=== PATIENT | male | born 1940 | race African-American/Black ===

== ENCOUNTER 2019-03-09 15:56 | Emergency (ER) | payer OTHER ==
--- NOTE | 2019-03-09 17:18 | PDOC ---
History of Present Illness - General Chief Complaint: Pain Stated Complaint: PAIN Time Seen by Provider: 03/09/19 16:50 History Source: Patient, Spouse Exam Limitations: No Limitations - History of Present Illness Initial Comments: 03/09/19 17:12 78 yo M PMH HTN, NIDDM, HLD, CAD s/p coronary stent 2/2 stress test result, PVD with previous cold L leg s/p stent, osteomyelitis of L big toe on vancomycin through PICC line, gout, presenting with chest tightness. States that he began to have pain in his L chest when taking a deep breath at around 1100, which has remained unchanged since then. Specifically denies SOB, N/V, abdominal pain, ELLIS, fevers/chills, constipation/ diarrhea. Past History - Past Medical History Allergies/Adverse Reactions: Allergies Allergy/AdvReac Type Severity Reaction Status Date / Time No Known Allergies Allergy Verified 03/09/19 16:21 Home Medications: Ambulatory Orders Allopurinol [Zyloprim -] 100 mg PO DAILY 03/09/19 Ascorbate Calcium [Vitamin C] 500 mg PO BID 03/09/19 Atorvastatin Calcium [Lipitor] 10 mg PO HS 03/09/19 Clopidogrel Bisulfate [Plavix] 75 mg PO DAILY 03/09/19 Esomeprazole Magnesium [Nexium 24Hr] 20 mg PO HS 03/09/19 Glyxambi 25 mg-5 mg Tablet 1 tab PO DAILY 03/09/19 Losartan Potassium 100 mg PO DAILY 03/09/19 Metformin HCl [Glucophage] 500 mg PO BID 03/09/19 Metoprolol Tartrate 25 mg PO BID 03/09/19 Vancomycin 1 gm Premix - 1 gm IV BID 03/09/19 COPD: No Diabetes: Yes HTN: Yes Other medical history: toe infection with iv abx and picc line - Surgical History Cardiac Surgery: Yes (stents) - Psycho Social/Smoking Cessation Hx Smoking History: Never smoked Review of Systems - Review of Systems Constitutional: No: Chills, Fever HEENTM: No: Blurred Vision, Hearing Loss, Difficulty Swallowing Respiratory: No: Cough, Shortness of Breath Cardiac (ROS): Yes: Chest Tightness. No: Chest Pain, Edema, Irregular Heart Rate ABD/GI: No: Difficulty Swallowing : No: Burning, Dysuria, Discharge, Frequency, Flank Pain Musculoskeletal: No: Back Pain, Muscle Pain Integumentary: No: Bruising Neurological: No: Headache, Numbness, Tingling *Physical Exam - Vital Signs Last Vital Signs Temp Pulse Resp BP Pulse Ox 97.6 F 74 18 150/64 99 03/09/19 16:18 03/09/19 16:18 03/09/19 16:18 03/09/19 16:18 03/09/19 16:18 - Physical Exam Comments: 03/09/19 17:22 Gen: well-developed, well-nourished, NAD HEENT: atraumatic, normocephalic Neck: trachea midline, supple CV: regular rate, regular rhythm Pulm: CTA b/l, no wheezing Abd: soft, non-distended, non-tender Extr: no edema, L big toenail ulceration MSK: full ROM, PICC line in place in L forearm Skin: warm, dry Neuro: CN II-XII intact, FTN intact, AAOX4 ED Treatment Course - LABORATORY CBC & Chemistry Diagram: 03/09/19 17:58 03/09/19 17:58 - RADIOLOGY Radiology Studies Ordered: Category Date Time Status CHEST PA & LAT [RAD] Stat Radiology 03/09/19 17:08 Ordered Medical Decision Making - Medical Decision Making 03/09/19 17:19 78 yo M with significant comorbidities, presenting with chest tightness. - EKG at sinus, 72 bpm, possible old anterior infarct - will get full cardiac workup - CBC, CMP, CXR, trop - will also get PT/INR and PTT considering stent history, on Plavix - will CTM - Wells score 1.5, PE unlikely 03/09/19 19:12 Patient's symptoms resolving. CXR and labs unremarkable. 03/09/19 19:30 Patient states that his symptoms have resolved, no longer feeling chest tightness. 03/09/19 19:45 Explained to patient the importance of staying to get a second troponin level checked. Patient is adamant that he would like to go home. The risks, including worsening chest pain, worsening shortness of breath, and potentially were explained to him, and still wants to leave. He is able to make this decision. Discharge - Discharge Information Problems reviewed: Yes Clinical Impression/Diagnosis: Chest tightness Condition: Guarded Disposition: AGAINST MEDICAL ADVICE - Admission No - Follow up/Referral Referrals: Jori Antony [Primary Care Provider] - - Patient Discharge Instructions Patient Printed Discharge Instructions: DI for Atypical Chest Pain Additional Instructions: You were seen after you developed chest tightness and some pain with deep breaths. Your EKG did not show any acute changes, and your labs were unconcerning. Your chest X ray also did not show any acute abnormalities. Your symptoms resolved while you were in the emergency department. Please follow up with your primary care doctor and your vascular surgeon. Return to the ED right away if you develop any chest pain or shortness of breath. - Post Discharge Activity
[2019-03-09 18:03] LABS: BASO % 1.4 % (0-2.0); EOS % 1.5 % (0-4.5); HEMATOCRIT 37.7 % (35.4-49); HEMOGLOBIN 12.3 GM/dL (11.7-16.9); LYMPH % 16.6 % (8-40); MCH 28.8 pg (25.7-33.7); MCHC 32.6 g/dl (32.0-35.9); MEAN CELL VOLUME 88.5 fl (80-96); MEAN PLT VOLUME 8.3 fl (7.5-11.1); MONO % 6.4 % (3.8-10.2); NEUT % 74.1 % (42.8-82.8); PLATELET COUNT 275 K/MM3 (134-434); RBC 4.26 M/mm3 (4.00-5.60); RDW 15.5 % (11.9-15.9); WHITE BLOOD COUNT 6.3 K/mm3 (4.0-10.0)
[2019-03-09 18:21] LABS: INR 1.08 (0.83-1.09); PROTHROMBIN TIME (PATIENT) 12.8 SEC (9.7-13.0)
[2019-03-09] MEDS ORDERED: ASPIRIN 81 MG CHEWABLE TABLETS PO ONE (19:00)
[2019-03-09 19:06] LABS: ALBUMIN 3.8 g/dl (3.4-5.0); ALK PHOS 93 U/L (45-117); ANION GAP 10 MMOL/L (8-16); BILIRUBIN,TOTAL 0.7 mg/dL (0.2-1); BLOOD UREA NITROGEN 21.6 mg/dL (7-18); CALCIUM 9.1 mg/dL (8.5-10.1); CHLORIDE 106 mmol/L (98-107); CO2 24 mmol/L (21-32); GLUCOSE,RANDOM 95 mg/dL (74-106); POTASSIUM 4.7 mmol/L (3.5-5.1); SGOT/AST 30 U/L (15-37); SGPT/ALT 18 U/L (13-61); SODIUM 141 mmol/L (136-145)
[2019-03-09] MEDS ORDERED: ASPIRIN 81 MG CHEWABLE TABLETS ONE (19:23)
--- NOTE | 2019-03-09 19:46 | PDOC ---
Documentation entered by Roxanne Salgado SCRIBE, acting as scribe for Katelin Riggs MD. Katelin Riggs MD: This documentation has been prepared by the Naomi beaver Nirvannie, SCRIBE, under my direction and personally reviewed by me in its entirety. I confirm that the documentation accurately reflects all work, treatment, procedures, and medical decision making performed by me. Attending Attestation - Resident Resident Name: Chapito Gonzales - ED Attending Attestation I have performed the following: I have examined & evaluated the patient, The case was reviewed & discussed with the resident, I agree w/resident's findings & plan - HPI HPI: 03/09/19 17:05 this 78 yo male p/w left sided chest pain since this morning that is pleuretic in nature - Physicial Exam PE: 03/09/19 17:07 wnwd 78 yo male with left sided chest pain that occurs when he takes a deep breath head ncat neck supple, no jvd, no bruits lung cta b/l abd no rebound.no guarding extremities there is infected left big toe w erythema, there is a PICC line in left arm skin warm and dry neuro axox3 03/09/19 17:18 - Medical Decision Making 03/09/19 17:23 PMH CAD,cardiac cath w stents, PVD ,NIDDM, HTN,GOUT 03/09/19 19:45 ekg nsr @ 72 bpm, normal QTc, no signs of acute ischemia negative troponin pt does not want to stay for a second troponin and will sign out AMA
[2019-03-09] MEDS ORDERED: VANCOMYCIN 1 GM in D5W (PRE-DOCKED) 1,000 MG/250 ML IVPB ONE (21:00)
--- NOTE | 2019-03-10 13:17 | EKG ---
Test Reason : Blood Pressure : / mmHG Vent. Rate : 072 BPM Atrial Rate : 072 BPM P-R Int : 180 ms QRS Dur : 080 ms QT Int : 414 ms P-R-T Axes : 030 -14 025 degrees QTc Int : 453 ms NORMAL SINUS RHYTHM WITH BASELINE ARTIFACTS POSSIBLE ANTERIOR INFARCT (CITED ON OR BEFORE 16-NOV-2006) ABNORMAL ECG WHEN COMPARED WITH ECG OF 16-NOV-2006 18:02, CRITERIA FOR INFERIOR INFARCT ARE NO LONGER PRESENT POOR DATA QUALITY IN CURRENT ECG PRECLUDES SERIAL COMPARISON Confirmed by AGUSTÍN GARCIA MD ([id number]) on 03/10/2019 1:17:15 PM Referred By: Confirmed By:AGUSTÍN GARCIA MD
== END 2019-03-09 20:16 | disposition left against medical advice (07) ==
LOC: JER 15:56
DX: R07.89 Other chest pain (principal); I25.10 Atherosclerotic heart disease of native coronary artery without angina pectoris; I10 Essential (primary) hypertension; Z95.5 Presence of coronary angioplasty implant and graft; E78.5 Hyperlipidemia, unspecified; E11.9 Type 2 diabetes mellitus without complications; Z79.84 Long term (current) use of oral hypoglycemic drugs; Z79.2 Long term (current) use of antibiotics; M86.9 Osteomyelitis, unspecified; I73.9 Peripheral vascular disease, unspecified; Z95.828 Presence of other vascular implants and grafts
CPT/HCPCS: 36415; 71046-TC-FY; 80053; 84484; 85025; 85610; 85730; 93005; 93010; 99284-25

== ENCOUNTER 2021-07-26 14:33 | Emergency (ER) | payer OTHER ==
[2021-07-26 14:50] VITALS: BP 138/81; PULSE 68; TEMP 98; BMI 28.1
== END 2021-07-26 18:42 | disposition home or self-care (01) ==
LOC: JERFT 14:33
DX: M54.2 Cervicalgia (principal); V49.40XA Driver injured in collision with unspecified motor vehicles in traffic accident, initial encounter
CPT/HCPCS: 70450-TC; 72125-TC; 99284-25

== ENCOUNTER 2024-04-14 15:16 | Inpatient (IN) | payer OTHER ==
[2024-04-14 15:48] VITALS: BMI 24.3
[2024-04-14 17:53] LABS: BASO % 0.1 % (0-2.0); EOS % 0.4 % (0-4.5); HEMATOCRIT 18.9 % (35.4-49); MCHC 31.2 g/dl (32.0-35.9); MEAN CELL VOLUME 80.2 fl (80-96); MEAN PLT VOLUME 7.2 fl (7.5-11.1); MONO % 5.8 % (3.8-10.2); NEUT % 79.7 % (42.8-82.8); PLATELET COUNT 413 10^3/uL (134-434); RBC 2.35 M/mm3 (4.00-5.60); WHITE BLOOD COUNT 5.9 K/mm3 (4.0-10.0)
[2024-04-14 17:55] LABS: INR 1.56 (0.83-1.09); PROTHROMBIN TIME (PATIENT) 17.7 SEC (9.7-13.0)
[2024-04-14 17:58] LABS: ACTIVATED PTT 37.7 SECONDS (25.2-36.5); HEMOGLOBIN 5.9 GM/dL (11.7-16.9)
[2024-04-14 18:18] LABS: POTASSIUM 3.7 mmol/L (3.5-5.1)
[2024-04-14 18:20] LABS: ALBUMIN 3.2 g/dl (3.4-5.0); CALCIUM 8.6 mg/dL (8.5-10.1)
[2024-04-14 18:21] LABS: BLOOD UREA NITROGEN 19.9 mg/dL (7-18); MAGNESIUM 1.9 mg/dL (1.8-2.4)
[2024-04-14 18:24] LABS: CREATININE 1.1 mg/dL (0.55-1.3)
[2024-04-14 18:25] LABS: BILIRUBIN,TOTAL 0.5 mg/dL (0.2-1); TOT PROT 6.3 g/dl (6.4-8.2)
[2024-04-14 23:46] LABS: URIC ACID 3.3 mg/dL (2.6-7.2)
[2024-04-15] MEDS ORDERED: LORATADINE 10 MG TABLET PO PRN ×2 (04:10→15:03)
[2024-04-15 06:34] LABS: PH,URINE 5.5 (5.0-8.0); URINE APPEARANCE Clear; URINE BILIRUBIN Negative (NEGATIVE); URINE COLOR Yellow; URINE GLUCOSE (UA) Negative (NEGATIVE); URINE KETONE Negative (NEGATIVE); URINE LEUK ESTERASE Negative (NEGATIVE); URINE NITRITE Negative (NEGATIVE); URINE PROTEIN Negative (NEGATIVE)
[2024-04-15] MEDS: ACETAMINOPHEN 1000 MG/100 ML BAG IVPB ONE ×2 (07:14→07:16)
[2024-04-15] MEDS: INSULIN ASPART SLIDING SCALE (NOVOLOG) 1 VIAL SQ SCH ×2 (07:17→17:17)
[2024-04-15 10:08] LABS: HEMATOCRIT 24.9 % (35.4-49); HEMOGLOBIN 8.1 GM/dL (11.7-16.9); MCH 26.4 pg (25.7-33.7); MCHC 32.4 g/dl (32.0-35.9); MEAN CELL VOLUME 81.5 fl (80-96); MEAN PLT VOLUME 7.6 fl (7.5-11.1); PLATELET COUNT 391 10^3/uL (134-434); RBC 3.05 M/mm3 (4.00-5.60); RDW 15.3 % (11.9-15.9); WHITE BLOOD COUNT 5.8 K/mm3 (4.0-10.0)
[2024-04-15] MEDS: CLOPIDOGREL BISULFATE 75 MG TABLET (FP) PO SCH (10:15)
[2024-04-15] MEDS: ALLOPURINOL 100 MG TABLET (FP) PO SCH (10:16)
[2024-04-15] MEDS: LOSARTAN POTASSIUM 50 MG TABLET PO SCH (10:16)
[2024-04-15] MEDS: DONEPEZIL HCL 5 MG TABLET (FP) PO SCH ×2 (10:16→22:50)
[2024-04-15] MEDS: METOPROLOL TARTRATE 25 MG TABLET (FP) PO SCH ×2 (10:16→22:50)
[2024-04-15 11:01] LABS: ALBUMIN 3.2 g/dl (3.4-5.0); BLOOD UREA NITROGEN 15.4 mg/dL (7-18); CALCIUM 8.6 mg/dL (8.5-10.1)
[2024-04-15 11:02] LABS: MAGNESIUM 2.1 mg/dL (1.8-2.4)
[2024-04-15 11:04] LABS: BILIRUBIN,TOTAL 1.4 mg/dL (0.2-1)
[2024-04-15 11:05] LABS: PHOSPHOROUS 3.7 mg/dL (2.5-4.9); TOT PROT 6.4 g/dl (6.4-8.2)
[2024-04-15] MEDS: AMITRIPTYLINE HCL 25 MG TABLET PO SCH (11:37)
[2024-04-15] MEDS: ASCORBIC ACID 100 MG PO SCH (17:43)
[2024-04-15] MEDS: BISACODYL 5 MG TABLET.DR (FP) PO ONE (17:57)
[2024-04-15] MEDS: PEG 3350/NA SULF BICARB CL/KCL 4000 ML SOLN.RECON PO ONE (17:57)
[2024-04-15] MEDS ORDERED: ATORVASTATIN CA 10 MG TABLET (FP) PO SCH (22:00)
[2024-04-15] MEDS ORDERED: PANTOPRAZOLE 20 MG TABLET PO SCH (22:00)
[2024-04-15] MEDS: ATORVASTATIN CA 10 MG TABLET (FP) PO SCH (22:50)
[2024-04-16 08:41] LABS: BASO % 0.3 % (0-2.0); EOS % 0.5 % (0-4.5); HEMATOCRIT 25.3 % (35.4-49); HEMOGLOBIN 8.4 GM/dL (11.7-16.9); MCH 26.9 pg (25.7-33.7); MCHC 33.2 g/dl (32.0-35.9); MEAN CELL VOLUME 80.8 fl (80-96); MEAN PLT VOLUME 7.5 fl (7.5-11.1); MONO % 4.9 % (3.8-10.2); NEUT % 77.3 % (42.8-82.8); PLATELET COUNT 392 10^3/uL (134-434); RBC 3.13 M/mm3 (4.00-5.60); WHITE BLOOD COUNT 6.7 K/mm3 (4.0-10.0)
[2024-04-16 08:55] LABS: POTASSIUM 3.9 mmol/L (3.5-5.1)
[2024-04-16 08:58] LABS: INR 1.14 (0.83-1.09); PROTHROMBIN TIME (PATIENT) 13.1 SEC (9.7-13.0)
[2024-04-16 09:03] LABS: ALBUMIN 3.3 g/dl (3.4-5.0); BLOOD UREA NITROGEN 9.9 mg/dL (7-18); CALCIUM 8.7 mg/dL (8.5-10.1)
[2024-04-16 09:06] LABS: CREATININE 0.9 mg/dL (0.55-1.3)
[2024-04-16 09:07] LABS: BILIRUBIN,TOTAL 1.7 mg/dL (0.2-1); TOT PROT 6.5 g/dl (6.4-8.2)
[2024-04-16] MEDS: CLOPIDOGREL BISULFATE 75 MG TABLET (FP) PO SCH (09:44)
[2024-04-16] MEDS: ALLOPURINOL 100 MG TABLET (FP) PO SCH (09:45)
[2024-04-16] MEDS: PANTOPRAZOLE 40 MG TABLET PO SCH ×2 (09:45→21:30)
[2024-04-16] MEDS: LOSARTAN POTASSIUM 50 MG TABLET PO SCH (09:45)
[2024-04-16] MEDS: AMITRIPTYLINE HCL 25 MG TABLET PO SCH (09:45)
[2024-04-16] MEDS ORDERED: PANTOPRAZOLE 40 MG TABLET PO SCH (10:00)
[2024-04-16] MEDS: ACETAMINOPHEN 325 MG TABLET (FP) PO PRN (17:35)
[2024-04-16] MEDS: ASCORBIC ACID 100 MG PO SCH (18:06)
[2024-04-17 11:16] LABS: HEMATOCRIT 28.1 % (35.4-49); HEMOGLOBIN 9.2 GM/dL (11.7-16.9); MCH 26.9 pg (25.7-33.7); MCHC 32.7 g/dl (32.0-35.9); MEAN CELL VOLUME 82.2 fl (80-96); MEAN PLT VOLUME 7.3 fl (7.5-11.1); PLATELET COUNT 393 10^3/uL (134-434); RBC 3.41 M/mm3 (4.00-5.60); RDW 16.5 % (11.9-15.9)
[2024-04-17 11:43] LABS: POTASSIUM 3.5 mmol/L (3.5-5.1)
[2024-04-17 11:45] LABS: BLOOD UREA NITROGEN 13.4 mg/dL (7-18)
[2024-04-17 11:47] LABS: ALBUMIN 3.3 g/dl (3.4-5.0)
[2024-04-17 11:49] LABS: CREATININE 1.1 mg/dL (0.55-1.3)
[2024-04-17 11:51] LABS: BILIRUBIN,TOTAL 1.2 mg/dL (0.2-1); TOT PROT 6.7 g/dl (6.4-8.2)
[2024-04-17 15:11] VITALS: BP 129/68; PULSE 75; RESP 18; TEMP 97.7
== END 2024-04-17 17:51 | disposition home or self-care (01) | DRG 812 ==
LOC: JER 15:16 → JERBED 18:30 → J6S 21:45 → OBSVTOIN 23:15 → J4W 04-15 13:31
PROVIDERS: ADMIT Internal Medicine; ATTEND Internal Medicine
PROC: 30233N1 Transfusion of Nonautologous Red Blood Cells into Peripheral Vein, Percutaneous Approach (ICD-10-PCS; principal; 2024-04-15)
PROC: 0DB68ZX Excision of Stomach, Via Natural or Artificial Opening Endoscopic, Diagnostic (ICD-10-PCS; 2024-04-16)
PROC: 0DB58ZX Excision of Esophagus, Via Natural or Artificial Opening Endoscopic, Diagnostic (ICD-10-PCS; 2024-04-16)
DX: D50.9 Iron deficiency anemia, unspecified (principal); K92.2 Gastrointestinal hemorrhage, unspecified; E78.5 Hyperlipidemia, unspecified; E11.51 Type 2 diabetes mellitus with diabetic peripheral angiopathy without gangrene; I25.10 Atherosclerotic heart disease of native coronary artery without angina pectoris; L97.519 Non-pressure chronic ulcer of other part of right foot with unspecified severity; E11.621 Type 2 diabetes mellitus with foot ulcer; I10 Essential (primary) hypertension; K20.90 Esophagitis, unspecified without bleeding
CPT/HCPCS: 36415; 36430; 72170-TC-FY; 74177-TC; 80053; 81003; 82272; 82728; 82962; 83540; 83550; 83735; 84100; 84484; 84550; 85025; 85027; 85045; 85610; 85730; 86850; 86900; 86901; 86922; 88305-TC; 88312-TC; 88342-TC; 93005; 93010; 93306-TC; 97116-GP; 97161-GP; 99285-25; G0378; P9058; Q9967